=== PATIENT | female | born 1980 | race Caucasian/White ===

== ENCOUNTER → 2016-06-12 | Day surgery (SDC) | payer OTHER | END | disposition home or self-care (01) | LOC: FAS 09:41 | DX: N93.9 Abnormal uterine and vaginal bleeding, unspecified (principal); I10 Essential (primary) hypertension; J45.909 Unspecified asthma, uncomplicated; G47.30 Sleep apnea, unspecified; F41.9 Anxiety disorder, unspecified; E78.00 Pure hypercholesterolemia, unspecified; E66.9 Obesity, unspecified; Z88.0 Allergy status to penicillin; Z88.2 Allergy status to sulfonamides; Z98.51 Tubal ligation status; Z87.891 Personal history of nicotine dependence; Z82.5 Family history of asthma and other chronic lower respiratory diseases; Z81.8 Family history of other mental and behavioral disorders; Z83.3 Family history of diabetes mellitus; Z80.1 Family history of malignant neoplasm of trachea, bronchus and lung; Z83.49 Family history of other endocrine, nutritional and metabolic diseases; Z80.49 Family history of malignant neoplasm of other genital organs; Z80.41 Family history of malignant neoplasm of ovary; Z79.899 Other long term (current) drug therapy | CPT/HCPCS: 84703; 88305; J1170; J2704 ==

== ENCOUNTER 2021-05-10 17:19 | Emergency (ER) | payer OTHER ==
[~2021-05-10] VITALS: Ht 162.6 cm; Wt 129.7 kg
[~2021-05-10 17:19] MED LIST: ANTIVERT25 MG PO; BIAXIN500 MG PO; IBUPROFEN800 MG PO; METRONIDAZOLE500 MG PO; ONDANSETRON ODT4 MG SL; PROTONIX 40MG T40 MG PO
[2021-05-10 18:00] LABS: BASOPHIL 0.4 % (0-2); EOSINOPHIL 3.4 % (0-5); HCT 43.3 % (37.0-47.0); HGB 13.9 g/dl (12.5-16.0); LYMPHOCYTE 20.1 % (15-48); MCH 27.3 pg (25.0-31.0); MCHC 32.1 g/dL (32.0-36.0); MCV 84.9 fL (78.0-100.0); MONOCYTE 3.7 % (0-12); MPV 9.1 fL (6.0-9.5); NRBC 0; PLT 378 K/uL (150-400); RDW 14.6 % (11.5-14.0)
[2021-05-10 18:01] LABS: BILIRUBIN NEGATIVE (NEGATIVE); BLOOD NEGATIVE Ery/uL (NEGATIVE); CLARITY CLEAR (CLEAR); COLOR YELLOW (YELLOW); GLUCOSE (U) NORMAL (NORMAL); LEUKOCYTES NEGATIVE Leu/uL (NEGATIVE); NITRITE NEGATIVE (NEGATIVE); PROTEIN NEGATIVE (NEGATIVE); SPECIFIC GRAVITY >=1.030 (1.001-1.030); UROBILINOGEN 0.2 mg/dL (0.2-1.0); pH 5.5 (5.0-9.0)
[2021-05-10 18:31] LABS: BUN/CREAT RATIO (CALC) 12.8 RATIO; CREATININE 0.78 mg/dL (0.51-0.95); POTASSIUM 3.6 mmol/L (3.5-5.1)
[2021-05-10] MEDS ORDERED: CIPRO500 MG PO (19:49)
[2021-05-10] MEDS ORDERED: METRONIDAZOLE500 MG PO (19:49)
[2021-05-10] MEDS ORDERED: NORCO 5-325 TA1 EACH PO (19:49)
== END 2021-05-10 20:03 | disposition home or self-care (01) ==
LOC: FER 17:19
PROVIDERS: Nurse Practitioner Family
DX: K57.32 Diverticulitis of large intestine without perforation or abscess without bleeding (principal); E11.9 Type 2 diabetes mellitus without complications; I10 Essential (primary) hypertension; Z88.0 Allergy status to penicillin; Z88.1 Allergy status to other antibiotic agents; Z88.5 Allergy status to narcotic agent
CPT/HCPCS: 36415; 80048; 81003; 85025; J1885; J2405; J7030; Q9967